=== PATIENT | male | born 1995 | race African-American/Black ===

== ENCOUNTER 2021-07-14 01:49 | Emergency (ER) | payer MEDICAID ==
[~2021-07-14] VITALS: Ht 172.7 cm; Wt 59.0 kg
[2021-07-14 02:31] VITALS: BP 118/66
[2021-07-14] MEDS ORDERED: DOXY100C5 MT (03:50)
[2021-07-14] MEDS ORDERED: CEFTRIAXONE SODIUM 500 MG/VIAL IM ONE (04:00)
[2021-07-14] MEDS ORDERED: PENICILLIN G BENZATHINE 2,400,000 UNITS/4ML SYR IM ONE (04:00)
[2021-07-14 04:09] LABS: CLARITY URINE CLEAR (CLEAR); COLOR URINE YELLOW (YELLOW); KETONES URINE TRACE (NEGATIVE); LEUKOCYTE ESTERASE URINE NEGATIVE (NEGATIVE); NITRITE URINE NEGATIVE (NEGATIVE); OCCULT BLOOD URINE NEGATIVE (NEGATIVE); PROTEIN URINE NEGATIVE (NEGATIVE); SPECIFIC GRAVITY URINE 1.035 (1.005-1.030); UROBILINOGEN URINE 0.2 E.U./dL (0.2-1.0)
[2021-07-16 04:12] LABS: NEISSERIA GONORRHOEAE NAA Negative (Negative)
== END 2021-07-14 06:17 | disposition home or self-care (01) ==
LOC: ER 01:49
DX: A53.9 Syphilis, unspecified (principal)
CPT/HCPCS: 81003; 86592; 86593; 86780; 87491; 87591; 96372; 99284; J0561; J0696